=== PATIENT | male | born 1955 | race African-American/Black ===

== ENCOUNTER 2017-07-23 01:37 | Inpatient (IN) | payer OTHER ==
[~2017-07-23] VITALS: Ht 175.3 cm; Wt 104.3 kg
[~2017-07-23 01:37] MED LIST: ALBUTEROL2.5 MG/3 M IH; CARdura 2MG TABLET PO; CEFDINIR300 MG PO; COZAAR100 MG; COZAAR100 MG PO; HYDRALAZINE HCL25 MG PO; HYDRALAZINE HCL50 MG PO; IMDUR30 MG PO; INTESTINEX680 MG PO; LEVAQUIN500 MG PO; MEDROLPACK PO; NORVASC 10 MG TAB PO; NORVASC 5MG TAB PO; NORVASC2.5 M1 PO; PEPCID20 MG PO; PROAIR HFA8.5 GM IH; Proventil 0.083% 2.5MG/3ML AMPUL.NEB. IH; Pulmicort 0.5 MG/2 ML AMPUL IH; SYMBICORT 16010.2 GM IH; TESSALON PERLE100 M1 PO; TESSALON PO; THEO-DUR PO; Theo-24 PO; VISTARIL50 MG PO; XANAX1 MG PO; XOPENEX0.63 MG/3 IH; XOPENEX1.25 MG/0. IH; ZYNCOF 20-400120 ML PO
== END 2017-07-30 17:59 | disposition home or self-care (01) | DRG 193 ==
LOC: ER 01:37 → MEDI 12:32 → SEC-K 12:32 → MEDI 14:18
PROC: 4A033R1 Measurement of Arterial Saturation, Peripheral, Percutaneous Approach (ICD-10-PCS; 2017-07-23)
PROC: 3E0F7GC Introduction of Other Therapeutic Substance into Respiratory Tract, Via Natural or Artificial Opening (ICD-10-PCS; 2017-07-23)
PROC: 5A1D70Z Performance of Urinary Filtration, Intermittent, Less than 6 Hours Per Day (ICD-10-PCS; principal; 2017-07-24)
PROC: 30233N1 Transfusion of Nonautologous Red Blood Cells into Peripheral Vein, Percutaneous Approach (ICD-10-PCS; 2017-07-24)
DX: J09.X2 Influenza due to identified novel influenza A virus with other respiratory manifestations (principal); I50.41 Acute combined systolic (congestive) and diastolic (congestive) heart failure; N18.6 End stage renal disease; J45.42 Moderate persistent asthma with status asthmaticus; I13.2 Hypertensive heart and chronic kidney disease with heart failure and with stage 5 chronic kidney disease, or end stage renal disease; J44.1 Chronic obstructive pulmonary disease with (acute) exacerbation; J44.0 Chronic obstructive pulmonary disease with (acute) lower respiratory infection; R78.81 Bacteremia; E11.22 Type 2 diabetes mellitus with diabetic chronic kidney disease; Z99.2 Dependence on renal dialysis; G47.33 Obstructive sleep apnea (adult) (pediatric); D63.1 Anemia in chronic kidney disease; J20.9 Acute bronchitis, unspecified; I27.21 Secondary pulmonary arterial hypertension